=== PATIENT | female | born 1950 | race Caucasian/White ===

== ENCOUNTER 2024-11-11 19:41 | Emergency (ER) | payer MEDICARE ==
[~2024-11-11] VITALS: Ht 157.5 cm; Wt 95.3 kg
--- NOTE | 2024-11-11 20:03 | ERN ---
General Chief Complaint: Mechanical Fall Stated Complaint: PAIN TO RT SHOULDER, ABRASIONS TO KNEE, RT FACE Time Seen by MD: 19:45 Time Seen by Midlevel: 19:45 Source: patient History of Present Illness Initial Comments Patient is a 74-year-old female presenting to the emergency department following a mechanical ground level fall that occurred today at approximately 4:00 p.m.. Patient states she was walking outside when she accidentally tripped over her sandals. She reports falling onto her right side and hitting the right side of her face. Her main concern today is her right shoulder. Patient is unable to lift her right shoulder. Denies any loss of consciousness or head injury. Denies being on any blood thinners. Allergies: Coded Allergies: No Known Allergies (Unverified Allergy, Unknown, 11/11/24) Past Medical History Past Medical History: Other Medical History Other: LUNG CA Past Surgical History: None ROS Dictation CONSTITUTIONAL: Negative except for HPI HEAD/FACE: Negative except for HPI EENT: Negative except for HPI RESPIRATORY: Negative except for HPI GASTROINTESTINAL/ABDOMINAL: Negative except for HPI GENITOURINARY: Negative except for HPI MUSCULOSKELETAL: Negative except for HPI INTEGUMENTARY: Negative except for HPI NEUROLOGICAL/PSYCH: Negative except for HPI HEMATOLOGIC/LYMPHATIC: Negative except for HPI All Systems Negative, Except as noted above. 13 point review of systems assessed and all negative except for above. Physical Exam Physical Exam Dictation Vital Signs reviewed General Appearance: Alert, oriented x 3, no acute distress, well developed, nourished. Head and Face: Multiple facial abrasions Eyes: PERRL, pink conjunctivas, eyelid no trauma, anterior chamber with arcus senilis. Ears: Pinnas intact and no signs of trauma or erythema ear canals clear and no discharge TM no erythema Nose: No discharge, no bleeding. Oropharynx: Mouth normal, tongue pink, pharynx clear,no erythema, tonsils no exudates, no abscesses noted, mucous membrane moist Neck: Supple, non-tender, no thyromegaly, no masses, no JVD, no bruits Breast:Deferred Chest:No tenderness, no crepitus, no paradoxical movement, no retractions Lungs:Clear, well-ventilated, symmetric, no rales, no wheezing, no rhonchi, no stridor, good breath sounds bilaterally Heart: Regular rate, regular rhythm, no murmur, no gallops Vascular: no peripheral edema, Abdomen: Soft, positive bowel sounds, nondistended, no guarding, nontender, no rebound, no masses no hepatomegaly, no splenomegaly, no Barron's sign, no hernias. Rectal: Deferred Genital: Deferred Neurological: Normal speech, motor function intact, sensory function intact Musculoskeletal: Neck nontender, full range of motion, back nontender, full range of motion, Extremities: Right shoulder tenderness, restricted range of motion secondary to pain, good distal pulses, sensation intact Skin: Color pink, dry, no turgor, no rash, no lacerations, bilateral knee abrasions, no contusions. Lymphatic: Deferred MDM MDM: Patient is a 74-year-old female presenting to the emergency department following a mechanical ground level fall that occurred today at approximately 4:00 p.m.. Patient states she was walking outside when she accidentally tripped over her sandals. She reports falling onto her right side and hitting the right side of her face. Her main concern today is her right shoulder. Patient is unable to lift her right shoulder. Denies any loss of consciousness or head injury. Denies being on any blood thinners. On physical examination the patient is neurologically intact with a GCS of 15. She has multiple facial abrasions. She also has multiple abrasions to bilateral knees however she was full range motion is ambulatory without assistance and with a normal gait. CT scan of the head and maxillofacial was obtained to rule out any acute fracture however CT scans did not show any acute fracture or dislocation. The patient was also reporting pain to her right shoulder. The patient was unable to fully lift her right shoulder over. An x-ray of the right shoulder was obtained which does not reveal any acute fracture or dislocation. Her right shoulder pain is most likely related to a rotator cuff injury. The patient was placed on a sling and she will be following up with the orthopedic physician back in [place]. Patient is stable for discharge at this time Differential diagnosis: Intracranial bleed, skull fracture, contusion, dislocation, rotator cuff injury There are no social concerns with this patient. Prescription drug management Prescriptions will include: None Medical management and examination interpretation discussions were had by me with other qualified healthcare professionals as indicated for the patient's care. ED Course Orders Procedure Category Date Status Time Shoulder Comp 2+Vws Rt RAD 11/11/24 Resulted 19:53 Ct Head/Brain W/O CT 11/11/24 Resulted Contrast 19:53 Ct Maxillofacial W/O CT 11/11/24 Resulted Contrast 19:53 Vital Signs Date Time Temp Pulse Resp B/P (MAP) Pulse Ox O2 Delivery O2 Flow Rate FiO2 11/11/24 21:19 98.2 70 15 147/68 98 Room Air* 0 21 11/11/24 19:46 99.0 62 20 154/67 100 Room Air [place] [id number] [place] [id number] IM[place] REPORT Signed PATIENT: ERICKSON HUGHES MR#: [id number] : 1950 SEX: F AGE: 74 LOCATION: [facility] ORDER 53 STATUS: REG ER [facility] REPORT#: [id number] SERVICE 52 REASON: fall ORDERING PHYSICIAN: DANIELLE MCCULLOUGH PROCEDURE: SHOL 2V RT - SHOULDER COMP 2+VWS RT Exam Type: SHOULDER COMP 2+VWS RT Clinical Information: fall Comparison: None FINDINGS: The examination is unremarkable. Specifically, the glenohumeral and acromioclavicular joints are preserved. Visualized portions of the humerus, the scapula, and the clavicle as well as the upper ribcage are unremarkable. No pulmonary pathology is noted in the visualized portions of the upper lobe. The soft tissues are preserved. There are no other gross abnormalities. IMPRESSION: NORMAL EXAMINATION. DICTATED BY: PERNELL NAVARRETE MD DATE: 11/11/242030 ELECTRONICALLY SIGNED BY: PERNELL NAVARRETE MD DATE: 11/11/242033 [place] [id number] [id number] IMAGING REPORT Signed PATIENT: ERICKSON HUGHES MR#: [id number] : 1950 SEX: F AGE: 74 LOCATION: [facility] ORDER 53 STATUS: REG ER [facility] REPORT#: [id number] SERVICE 52 REASON: fall ORDERING PHYSICIAN: DANIELLE MCCULLOUGH PROCEDURE: MAXFACI WO - CT MAXILLOFACIAL W/O CONTRAST CT MAXILLOFACIAL W/O CONTRAST Indication: fall Technique: Multiple thin section axial images were performed through the face and paranasal sinuses. Coronal reconstructions were performed in soft tissue and bone windows, as well as sagittal reconstructions. CT Dose Index (CTDI): 22.11 mGy Dose Length Product (DLP): 450.8 total mGy Findings: Paranasal sinuses are unremarkable. There is no evidence of facial fracture. Visualized soft tissues are unremarkable. Visualized intracranial contents are unremarkable. Impression: No acute abnormality of the face. This study was performed using dose reduction techniques to include automated exposure control and/or adjustment of the mA and/or kV according to patient size. DICTATED BY: PERNELL NAVARRETE MD DATE: 11/11/242028 ELECTRONICALLY SIGNED BY: PERNELL NAVARRETE MD DATE: 11/11/242033 [place] [id number] IMAGING REPORT Signed PATIENT: ERICKSON HUGHES MR#: [id number] : 1950 SEX: F AGE: 74 LOCATION: [facility] ORDER 53 STATUS: REG REPORT#: [id number] SERVICE 52 REASON: fall ORDERING PHYSICIAN: DANIELLE MCCULLOUGH PROCEDURE: HEAD WO - CT HEAD/BRAIN W/O CONTRAST Exam Type: CT HEAD/BRAIN W/O CONTRAST Clinical Information: fall Comparison: None CT Dose Index (CTDI): 57.33 mGy Dose Length Product (DLP): 956.79 total mGy-cm Findings: The examination is unremarkable. Quick-white matter junction is preserved. No intra or extra axial lesions or fluid collections are seen. Specifically, quick and white matter are normal in signal characteristics with normal caliber of ventricles and periventricular cisterns with no evidence of intra or or extra-axial hemorrhage, lacunar infarct, or major territorial infarct, mass, or other abnormality. There are no infarcts. There are no hemorrhages. Periventricular white matter locations are preserved. The orbital contents and structures of the posterior fossa are intact. Impression: Normal CT of the head. This study was performed using dose reduction techniques to include automated exposure control and/or adjustment of the mA and/or kV according to patient size. DICTATED BY: PERNELL NAVARRETE MD DATE: 11/11/242023 ELECTRONICALLY SIGNED BY: PERNELL NAVARRETE MD DATE: 11/11/242029 DX & DISP Disposition: Discharge Departure Impression: Primary Impression: Fall Additional Impression: Facial contusion Condition: Stable Referrals: NONE (PCP) Time of Disposition: 21:15 I have reviewed the case, and I agree with, Diagnosis and Plan I performed the substantive portion of the visit. I have reviewed and personally made and approve the management plan that is documented in the note by myself or the AM[facility]. I acknowledge for responsibility for the patient's management plan. DANIELLE MCCULLOUGH Nov 11, 2024 20:03
--- NOTE | 2024-11-11 20:30 | HMCIMG ---
Exam Type: CT HEAD/BRAIN W/O CONTRAST Clinical Information: fall Comparison: None CT Dose Index (CTDI): 57.33 mGy Dose Length Product (DLP): 956.79 total mGy-cm Findings: The examination is unremarkable. Quick-white matter junction is preserved. No intra or extra axial lesions or fluid collections are seen. Specifically, quick and white matter are normal in signal characteristics with normal caliber of ventricles and periventricular cisterns with no evidence of intra or or extra-axial hemorrhage, lacunar infarct, or major territorial infarct, mass, or other abnormality. There are no infarcts. There are no hemorrhages. Periventricular white matter locations are preserved. The orbital contents and structures of the posterior fossa are intact. Impression: Normal CT of the head. This study was performed using dose reduction techniques to include automated exposure control and/or adjustment of the mA and/or kV according to patient size.
--- NOTE | 2024-11-11 20:34 | HMCIMG ---
CT MAXILLOFACIAL W/O CONTRAST Indication: fall Technique: Multiple thin section axial images were performed through the face and paranasal sinuses. Coronal reconstructions were performed in soft tissue and bone windows, as well as sagittal reconstructions. CT Dose Index (CTDI): 22.11 mGy Dose Length Product (DLP): 450.8 total mGy Findings: Paranasal sinuses are unremarkable. There is no evidence of facial fracture. Visualized soft tissues are unremarkable. Visualized intracranial contents are unremarkable. Impression: No acute abnormality of the face. This study was performed using dose reduction techniques to include automated exposure control and/or adjustment of the mA and/or kV according to patient size.
--- NOTE | 2024-11-11 20:34 | HMCIMG ---
Exam Type: SHOULDER COMP 2+VWS RT Clinical Information: fall Comparison: None FINDINGS: The examination is unremarkable. Specifically, the glenohumeral and acromioclavicular joints are preserved. Visualized portions of the humerus, the scapula, and the clavicle as well as the upper ribcage are unremarkable. No pulmonary pathology is noted in the visualized portions of the upper lobe. The soft tissues are preserved. There are no other gross abnormalities. IMPRESSION: NORMAL EXAMINATION.
[2024-11-11 21:19] VITALS: BP 147/68; PULSE 70; RESP 15; TEMP 98.2; O2SAT 98
== END 2024-11-11 21:39 | disposition home or self-care (01) ==
LOC: EDH 19:41
DX: S00.83XA Contusion of other part of head, initial encounter (principal); Z85.118 Personal history of other malignant neoplasm of bronchus and lung; W01.0XXA Fall on same level from slipping, tripping and stumbling without subsequent striking against object, initial encounter; Y93.89 Activity, other specified; Y92.89 Other specified places as the place of occurrence of the external cause; Y99.8 Other external cause status
CPT/HCPCS: 70450; 70486; 73030; 99284